=== PATIENT | female | born 1950 ===

== ENCOUNTER 2023-08-24 00:08 | Emergency (ER) | payer MEDICARE, SELFPAY ==
[2023-08-24 00:12] VITALS: BP 148/112
[2023-08-24 00:41] LABS: Urine Albumin 3+ (Neg - Trace); Urine Bilirubin Negative (Negative); Urine Character Slightly Cloudy (Clear); Urine Color Red; Urine Glucose Negative (Negative); Urine Ketone Trace (Negative); Urine Leukocyte Trace (Negative); Urine Nitrite Negative (Negative); Urine Occult Blood 4+ (Negative); Urine Urobilinogen Negative (Neg - 1+)
--- NOTE | 2023-08-24 00:44 | ED.GENMED ---
History of Present Illness
<LACHELLE Borja - Last Filed: 08/24/23 04:03>
General
Chief Complaint: Urinary Symptoms
Source: patient
Time Seen by Provider: 08/24/23 00:31
Nursing documentation reviewed up to this point in time: agreed with
Travel History
Have you had any contact with someone who has COVID-19?: No
Do you have any symptoms of coronavirus? Fever > 100 degrees, chills, cough, shortness of breath, sore throat, loss of taste or smell, muscle aches, or headache?: No
History of Present Illness
History of Present Illness:
73 y/o F presents to ED complaining of burning with peeing, urinary frequency, and blood in urine since 5pm today. Patient reports she is urinating every 15 minutes. She does report drinking lots of water. Patient reports there are clots of blood in
her urine when she pees. She reports moderate pain and burning with urination. Shes reporting feeling bloated and pressure in her abdomen. She states this has never happened to her before and she has not started any new medications. She denies
abdominal pain, vomiting, diarrhea, CP, palpitations, back pain, fever, or chills.
If applicable-neuro sx onset
Onset of symptoms known: Yes
Date of onset of symptoms: 08/24/23
Time of onset of symptoms: 17:00
Review of Systems
<LACHELLE Borja - Last Filed: 08/24/23 04:03>
Review of Systems
Allergies reviewed?: Yes
All Other Systems: ROS reviewed and negative except as documented in HPI and ROS
Constitutional: Reports no symptoms
EENT: Reports no symptoms
Respiratory: Reports no symptoms
Cardiac: Reports no symptoms
ABD/GI: Reports nausea
: Reports dysuria, frequency, urgency and bleeding
Musculoskeletal: Reports no symptoms
Skin: Reports no symptoms
Neurological: Reports no symptoms
Endocrine: Reports no symptoms
Hematologic/Lymphatic: Reports no symptoms
Psychiatric: Reports no symptoms
Phy Exam
<LACHELLE Borja - Last Filed: 08/24/23 04:03>
General Physical Exam
General Presentation: well appearing and no apparent distress
General age: appears stated age
General Skin: warm and dry
General Habitus: normal
General Mental: alert
General Hydration: appears well hydrated
Cardiovascular Exam
Cardiovascular Exam: regular rate/rhythm, no edema, no gallop and no murmur
Pulmonary Exam
Pulmonary Exam: lungs clear, no respiratory distress, no rales, no crackles and no rhonchi
Gastrointestinal Exam
Gastrointestinal Exam: normal bowel sounds, non tender, soft, non distended and other (negative CVA tenderness)
Palpation: left upper quadrant: No tenderness, left lower quadrant: No tenderness, right upper quadrant: No tenderness and right lower quadrant: No tenderness
Neurological Exam
Neurological Exam: alert and oriented x3
Psychiatric Exam
Psychiatric Exam: normal mood/affect
Course
<LACHELLE Borja - Last Filed: 08/24/23 04:03>
Orders/Labs/Results
Orders:
Orders
08/24/23 00:28
Urinalysis Reflex To Culture Urgent
Date Specimen was Collected: 08/24/23
Time Specimen was Collected: 00:26
Urine Microscopic Reflex Cult Urgent
Urine Culture Urgent
JACINTO Source: U
Specimen Description:
Date Specimen was Collected: 08/24/23
Time Specimen was Collected: 00:26
08/24/23 01:39
CT Abd/pel Without Iv Or Oral Urgent
Reason For Exam: hematuria, dysuria
08/24/23 03:16
Fosfomycin [Monurol] 3 gm PO ONCE ONE
Abnormal Lab Results
08/24/23
00:28
Urine Ketones Trace A
(Negative)
Ur Occult Blood Reflex 4+ A
(Negative)
Leukocyte Esterase Rfl Trace A
(Negative)
Urine RBC >100 A /HPF
(0-2)
Urine WBC (Reflex) >100 A /HPF
(0-5)
Urine Bacteria (Reflex) Many A
(Negative)
Urine Albumin (Reflex) 3+ A
(Neg - Trace)
Vital Signs
Initial and Last Documented VS:
Initial Vital Signs
Temp Pulse Resp BP Pulse Ox
98.1 F 74 22 148/112 97
08/24/23 00:12 08/24/23 00:12 08/24/23 00:12 08/24/23 00:12 08/24/23 00:12
Last Documented Vital Signs
Temp Pulse Resp BP Pulse Ox
98.1 F 66 14 131/61 96
08/24/23 00:12 08/24/23 03:47 08/24/23 03:47 08/24/23 03:47 08/24/23 03:47
<Jose J Cohen, DO - Last Filed: 08/24/23 03:17>
Orders/Labs/Results
Orders:
Orders
08/24/23 00:28
Urinalysis Reflex To Culture Urgent
Date Specimen was Collected: 08/24/23
Time Specimen was Collected: 00:26
Urine Microscopic Reflex Cult Urgent
Urine Culture Urgent
JACINTO Source: U
Specimen Description:
Date Specimen was Collected: 08/24/23
Time Specimen was Collected: 00:26
08/24/23 01:39
CT Abd/pel Without Iv Or Oral Urgent
Reason For Exam: hematuria, dysuria
08/24/23 03:16
Fosfomycin [Monurol] 3 gm PO ONCE ONE
Abnormal Lab Results
08/24/23
00:28
Urine Ketones Trace A
(Negative)
Ur Occult Blood Reflex 4+ A
(Negative)
Leukocyte Esterase Rfl Trace A
(Negative)
Urine RBC >100 A /HPF
(0-2)
Urine WBC (Reflex) >100 A /HPF
(0-5)
Urine Bacteria (Reflex) Many A
(Negative)
Urine Albumin (Reflex) 3+ A
(Neg - Trace)
Vital Signs
Initial and Last Documented VS:
Initial Vital Signs
Temp Pulse Resp BP Pulse Ox
98.1 F 74 22 148/112 97
08/24/23 00:12 08/24/23 00:12 08/24/23 00:12 08/24/23 00:12 08/24/23 00:12
Last Documented Vital Signs
Temp Pulse Resp BP Pulse Ox
98.1 F 66 14 131/61 96
08/24/23 00:12 08/24/23 03:47 08/24/23 03:47 08/24/23 03:47 08/24/23 03:47
<LACHELLE Borja - Last Filed: 08/24/23 04:03>
MDM/Problems Addressed
Differential Diagnosis Includes:
UTI
<LACHELLE Borja - Last Filed: 08/24/23 04:03>
*Critical Care Note
Total Time (30-74mins, 75-104mins- exclusive of procedures): Not Applicable
<Jose J Cohen DO - Last Filed: 08/24/23 03:17>
Update Note
Update Note:
CT ABDOMEN AND PELVIS noncontrast
IMPRESSION:
Mild bladder wall thickening with faint adjacent fat stranding. Correlate for cystitis.
No hydronephrosis or nephrolithiasis. No significant perinephric stranding.
No bowel obstruction or inflammation.
No free fluid or free air.
Atherosclerosis. No AAA.
Degenerative changes in the spine. Bilateral pars defects with grade 1 spondylolisthesis.
ED Attending Note
<LACHELLE Borja - Last Filed: 08/24/23 04:03>
-
Portions of this chart may have been created with voice recognition software.� Occasional wrong word or��sound alike� substitutions may have occurred due to the inherent limitations of voice recognition software.
<Jose J Cohen DO - Last Filed: 08/24/23 03:17>
ED Attending Note
Patient seen and examined by attending physician: Yes
I performed the substantive portion of visit, reviewed & personally made and approve the management plan that is documented in note by myself or INGA.: Yes
ED Attending Note:
Pleasant 73-year-old female that presents with hematuria and burning with urination. She states that she has also had urinary frequency since 5 PM. She has been drinking a lot of water. She does report blood and clots that in her urine. Denies
any other symptoms at this time. Reports no back pain or flank pain. Patient was seen in conjunction with the PA student. I have reviewed and agree with the history and treatment plan presented. On my independent physical exam, patient is awake,
alert, and oriented x3, no acute distress. No CVA tenderness. No abdominal tenderness to palpation. Good bowel sounds x 4 quadrants. No suprapubic tenderness on exam. Heart is regular rate and rhythm. Lungs are clear to auscultation
bilaterally without wheezes rales or rhonchi present.
Discharge Plan
Departure
Patient Disposition: Home (Routine Discharge)
Date of Disposition: 08/24/23
Time of Disposition: 03:15
Patient with high blood pressure during this ER visit?: Yes
Condition: Good
Discharge Problem:
Acute UTI, Hematuria
Instructions: Urinary Tract Infection, Adult (DC), Blood in the Urine (Hematuria), Adult (DC), BLOOD PRESSURE
Referrals:
Phill Singh MD [Family Provider] -
Activity Restrictions/Additional Instructions:
It was a pleasure meeting you and taking part in your care. We hope for your continued healing and wellness.
Please read discharge instructions in their entirety. However, they are for general education and may not describe your exact diagnosis at discharge. Information on your ER visit and medical conditions were discussed with you along with appropriate
follow up information...
If indicated, please take your medications as instructed and indicated on discharge paperwork.
Please schedule a follow up appointment as directed. Call to schedule an appointment
Please return to the emergency department with ANY change in, persisting, or worsening of symptoms. If any of your symptoms do not improve, or persist, or become more severe within 6-12 hours, please return to the emergency department for further
care.
Please return to the emergency department if you develop a headache, neck pain/stiffness, fever greater than 100.4F, chest pain, shortness of breath, persistent nausea, vomiting, slurred speech, difficulty walking, numbness/tingling, weakness, signs
of infection or any other symptoms that are worrisome to you.
If you have any questions or concerns please do not hesitate to call the Hospital at or E-mail me directly at [email or web address]
Interventions
Interventions:
*Risk Screen - Suicide Last Done: 08/24/23 00:12
*General Assessment Last Done: 08/24/23 01:40
*Neglect/Abuse Screening Last Done: 08/24/23 01:40
ED- Fall Risk Assessment Last Done: 08/24/23 01:40
*ED COVID-19 Vaccine History Last Done: 08/24/23 01:40
*Nursing Disposition Last Done: 08/24/23 03:47
ED-Female Genitourinary Assessment Last Done: 08/24/23 00:35
Discharge Date and Time
Discharge Date/Time: 08/24/23 03:48
[2023-08-24 01:16] LABS: Urine Amorphous Seen; Urine Red Blood Cell >100 /HPF (0-2); Urine Squamous Cell >30 /LPF (Few); Urine Urothelial Cell >30 /LPF (FEW); Urine White Cell >100 /HPF (0-5)
[2023-08-24 01:17] LABS: Urine Bacteria Many (Negative)
[2023-08-24] MEDS: MONUROL 3 GM PO (03:35)
[2023-08-24 03:47] VITALS: BP 131/61
== END 2023-08-24 03:48 | disposition home or self-care (01) ==
LOC: EMR 00:08
PROVIDERS: EMERGENCY PHYSICIAN Student in an Organized Health Care Education/Training Program; FAMILY PHYSICIAN Internal Medicine
DX: N39.0 Urinary tract infection, site not specified (principal); R31.9 Hematuria, unspecified; R30.0 Dysuria
CPT/HCPCS: 99284; 74176; 81003; 81015; 87077; 87086; 87186

== ENCOUNTER 2023-08-31 13:28 | Emergency (ER) | payer MEDICARE, SELFPAY ==
[2023-08-31 13:29] VITALS: BP 141/84
[2023-08-31 13:44] LABS: Urine Albumin 1+ (Neg - Trace); Urine Bilirubin Negative (Negative); Urine Character Bloody (Clear); Urine Color Brown; Urine Glucose Negative (Negative); Urine Ketone Negative (Negative); Urine Leukocyte 2+ (Negative); Urine Nitrite Negative (Negative); Urine Occult Blood 4+ (Negative); Urine Urobilinogen Negative (Neg - 1+); Urine pH 6.5 (5.0-9.0)
[2023-08-31 13:48] VITALS: BMI 25.8
[2023-08-31 14:04] LABS: Urine Red Blood Cell 16-20 /HPF (0-2); Urine White Cell 60-70 /HPF (0-5)
[2023-08-31 14:05] LABS: Urine Bacteria Moderate (Negative)
--- NOTE | 2023-08-31 14:20 | EDRN ---
Randal Larson PA in to see pt at this time.
--- NOTE | 2023-08-31 14:23 | ED.GENMED ---
History of Present Illness
General
Chief Complaint: Urinary Symptoms
Source: patient
Exam Limitations: none
Time Seen by Provider: 08/31/23 13:53
Travel History
Have you had any contact with someone who has COVID-19?: No
Do you have any symptoms of coronavirus? Fever > 100 degrees, chills, cough, shortness of breath, sore throat, loss of taste or smell, muscle aches, or headache?: No
History of Present Illness
History of Present Illness:
73-year-old female presents with ongoing urinary symptoms including urgency frequency and some blood in the urine. She was here about a week ago for UTI and treated with fosfomycin. She denies fevers. She denies vomiting or flank pain. No other
complaints at this
Phy Exam
Physical Exam
Physical Exam:
General: Well-appearing nontoxic female no acute respiratory distress
HEENT: Normocephalic atraumatic neck is supple heart: Regular rate and rhythm no murmurs
Lungs: Clear to auscultation bilaterally no wheezing
Abdomen is soft nontender no costovertebral angle tenderness normal bowel sounds no guarding or rebound
Course
Orders/Labs/Results
Orders:
Orders
08/31/23 13:38
Urinalysis Reflex To Culture Urgent
Date Specimen was Collected: 08/31/23
Time Specimen was Collected: 13:33
Urine Microscopic Reflex Cult Urgent
Urine Culture Urgent
JACINTO Source: U
Specimen Description:
Date Specimen was Collected: 08/31/23
Time Specimen was Collected: 13:33
Abnormal Lab Results
08/31/23
13:38
Ur Occult Blood Reflex 4+ A
(Negative)
Leukocyte Esterase Rfl 2+ A
(Negative)
Urine RBC 16-20 A /HPF
(0-2)
Urine WBC (Reflex) 60-70 A /HPF
(0-5)
Urine Bacteria (Reflex) Moderate A
(Negative)
Urine Albumin (Reflex) 1+ A
(Neg - Trace)
Vital Signs
Initial and Last Documented VS:
Initial Vital Signs
Temp Pulse Resp BP Pulse Ox
98.1 F 83 16 141/84 97
08/31/23 13:29 08/31/23 13:29 08/31/23 13:08/31/23 13:29 08/31/23 13:29
Last Documented Vital Signs
Temp Pulse Resp BP Pulse Ox
98.1 F 83 16 141/84 97
08/31/23 13:29 08/31/23 13:29 08/31/23 13:29 08/31/23 13:08/31/23 13:29
MDM/Problems Addressed
Differential Diagnosis Includes:
Urinary symptoms. Without fever or vomiting. Do not suspect pyelonephritis or kidney stone. Urinalysis today with moderate bacteria blood and leukocytes. Will treat again for UTI. She is stable otherwise. Will start Omnicef 3 mg twice a day
for a week
*Critical Care Note
Total Time (30-74mins, 75-104mins- exclusive of procedures): Not Applicable
ED Attending Note
-
Portions of this chart may have been created with voice recognition software.� Occasional wrong word or��sound alike� substitutions may have occurred due to the inherent limitations of voice recognition software.
Discharge Plan
Departure
Patient Disposition: Home (Routine Discharge)
Date of Disposition: 08/31/23
Time of Disposition: 14:25
Patient with high blood pressure during this ER visit?: No
Discharge Problem:
Acute UTI
Instructions: Urinary Tract Infection, Adult (DC)
Prescriptions:
New
cefdinir 300 mg capsule
300 mg PO BID Qty: 14 0RF
Referrals:
Phill Singh MD [Family Provider] -
Activity Restrictions/Additional Instructions:
Discuss it looks like you have urinary tract infection on the urinalysis. Take antibiotics as directed. Drink plenty fluids. Return for worsening symptoms otherwise follow-up with family doctor as planned
Interventions
Interventions:
*Risk Screen - Suicide Last Done: 08/31/23 13:51
*General Assessment Last Done: 08/31/23 13:29
*Neglect/Abuse Screening Last Done: 08/31/23 13:51
ED- Fall Risk Assessment Last Done: 08/31/23 13:51
*ED COVID-19 Vaccine History Last Done: 08/31/23 13:29
ED-Female Genitourinary Assessment Last Done: 08/31/23 13:51
[2023-08-31 14:40] VITALS: BP 128/82
== END 2023-08-31 14:40 | disposition home or self-care (01) ==
LOC: EMR 13:28
PROVIDERS: Emergency Medicine; EMERGENCY PHYSICIAN Emergency Medicine; FAMILY PHYSICIAN Internal Medicine
DX: N39.0 Urinary tract infection, site not specified (principal)
CPT/HCPCS: 99283; 81003; 81015; 87077; 87086; 87186

== ENCOUNTER 2024-09-17 13:44 | Emergency (ER) | payer MEDICARE, SELFPAY ==
[2024-09-17 13:45] VITALS: BP 92/65
--- NOTE | 2024-09-17 14:21 | ED.GENMED ---
History of Present Illness
General
Chief Complaint: Eye Problems
Source: patient
Exam Limitations: none
Time Seen by Provider: 09/17/24 14:01
Nursing documentation reviewed up to this point in time: agreed with
History of Present Illness
History of Present Illness:
Patient is a 74-year-old female who presents to the ER complaining of blurry vision and some difficulty focusing from right eye. She noticed this while reading . She denies any trauma. She denies any floaters shadows curtain sensation.
She denies any field deficit. she describes this as simply having some mild blurry vision from the right eye. She denies any headache or facial pain. She denies any diplopia .
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 She was supposed to see her side panel padder for regular checkup this Thursday but they
canceled until next week which is what prompted patient to come to the ER.
She denies any double vision, redness, fever chills or pain rash.
Patient does wear corrective glasses not contacts.
Review of Systems
Review of Systems
Allergies reviewed?: Yes
Other source history: family
All Other Systems: ROS reviewed and negative except as documented in HPI and ROS
Constitutional: Reports no symptoms
EENT: Reports other (blurry vision from right eye )
Cardiac: Reports no symptoms
Musculoskeletal: Reports no symptoms
Skin: Reports no symptoms
Neurological: Reports no symptoms; Denies dizzy, headache or weakness
Psychiatric: Reports no symptoms
Phy Exam
General Physical Exam
General Presentation: well appearing
General age: appears stated age
General Skin: warm and dry
General Habitus: normal
General Mental: alert
General Hydration: appears well hydrated
ENT Exam
ENT Exam: EOMI
Eye Exam
Eye Exam: PERRL, EOMI, cornea clear, conjunctiva normal, visual ang normal and other (Exam examined with fluorescein no corneal abrasion or dye uptake)
Able to obtain acuity?: Yes
Eye Exam General: PERRL: bilateral and EOM intact: bilateral
Pupil Exam: Bilateral: round and reactive
Neurological Exam
Neurological Exam: alert and oriented x3
Musculoskeletal Exam
Musculoskeletal Exam: full ROM
Skin Exam
Skin Exam: normal color and warm/dry
Course
Orders/Labs/Results
Orders:
Orders
09/17/24 14:22
Visual Acuity- Treatment ONCE
09/17/24 15:20
CT Head W/o Iv Contrast Urgent
Comment:
Reason For Exam: blurry vision
Vital Signs
Initial and Last Documented VS:
Initial Vital Signs
Temp Pulse Resp BP Pulse Ox
98.0 F 85 18 92/65 95
09/17/24 13:45 09/17/24 13:45 09/17/24 13:45 09/17/24 13:45 09/17/24 13:45
Last Documented Vital Signs
Temp Pulse Resp BP Pulse Ox
98.0 F 85 18 92/65 95
09/17/24 13:45 09/17/24 13:45 09/17/24 13:45 09/17/24 13:45 09/17/24 13:45
Early Childhood Assistant consulted with Physician
Early Childhood Assistant consulted with physician?: Yes
Name of Physician Consulted: Pavel
MDM/Problems Addressed
MDM/Problems Addressed:
As documented patient is a 74-year-old female who presented with blurry vision from right eye since for the past 2 days. As documented above she has had no complaints of eye pain no visual field deficit no curtain sensation no shadowing no
floaters. She denies any injury. She denies any headache. She is no neurological complaints. She presents awake alert no acute distress. She does not wear contact she does wear glasses. She is slight blurry vision from the right eye however on
exam she has no field cut deficit. She has no corneal abrasion. She is nontoxic. She has a normal neurologic exam. Case reviewed with ED physician Case reviewed with neurologist .CAT scan recommended however patient does not want to wait and
wants to go home. It is recommended that she closely follow-up with her side panel padder as this is likely an ophthalmology problem and not a neurological problem. She has no tenderness to the temporal area and no signs of optic neuritis at this
time.
She is well-appearing stable for discharge home with outpatient 5 her side panel padder.
*Pulse Oximetry
Patient hypoxic: no
*Critical Care Note
Total Time (30-74mins, 75-104mins- exclusive of procedures): Not Applicable
Patient Management
Discussion with other providers: Senior Interactive Producer (neuro DR Eubanks )
ED Attending Note
-
Portions of this chart may have been created with voice recognition software.� Occasional wrong word or��sound alike� substitutions may have occurred due to the inherent limitations of voice recognition software.
Discharge Plan
Departure
Patient Disposition: Home (Routine Discharge)
Date of Disposition: 09/17/24
Time of Disposition: 16:10
Patient with high blood pressure during this ER visit?: No
Condition: Fair
Covid-19: Not Applicable
Discharge Problem:
Visual disturbance
Prescriptions:
No Action
cefdinir 300 mg capsule
300 mg PO BID Qty: 14 0RF
Referrals:
Phill Singh MD [Family Provider] -
Activity Restrictions/Additional Instructions:
You were seen here today for visual disturbance in right eye. Please follow-up closely with your side panel padder in the next 2 days, need for an appointment return if any worsening of symptoms including eye pain decreased vision headache or any
further concerns
Interventions
Interventions:
*Risk Screen - Suicide Last Done: 09/17/24 13:45
*General Assessment Last Done: 09/17/24 13:45
*Nursing Disposition Last Done: 09/17/24 16:15
Discharge Date and Time
Print Language: SLOVAK
[2024-09-17 14:55] VITALS: BMI 24.4
== END 2024-09-17 16:16 | disposition home or self-care (01) ==
LOC: EMR 13:44
PROVIDERS: EMERGENCY PHYSICIAN Student in an Organized Health Care Education/Training Program; FAMILY PHYSICIAN Internal Medicine
DX: H53.8 Other visual disturbances (principal); Z86.69 Personal history of other diseases of the nervous system and sense organs
CPT/HCPCS: 99283